=== PATIENT | female | born 1995 | race Caucasian/White ===

== ENCOUNTER 2021-09-07 19:36 | Emergency (ER) | payer OTHER ==
[2021-09-07 20:49] LABS: BASOPHIL 0.6 % (0-2); EOSINOPHIL 1.5 % (0-5); HCT 39.1 % (37.0-47.0); HGB 12.9 g/dl (12.5-16.0); MCH 28.7 pg (25.0-31.0); MCV 86.9 fL (78.0-100.0); MONOCYTE 9.1 % (0-12); MPV 9.4 fL (6.0-9.5); NEUTROPHIL 57.2 % (41-80); NRBC 0; PLT 394 K/uL (150-400); RDW 12.6 % (11.5-14.0); WBC 12.3 K/uL (4.0-10.5)
[2021-09-07 20:53] LABS: BILIRUBIN NEGATIVE (NEGATIVE); BLOOD TRACE-INTACT Ery/uL (NEGATIVE); CLARITY CLEAR (CLEAR); COLOR YELLOW (YELLOW); GLUCOSE (U) NORMAL (NORMAL); LEUKOCYTES 3+ Leu/uL (NEGATIVE); NITRITE NEGATIVE (NEGATIVE); PROTEIN TRACE (LOW) mg/dL (NEGATIVE); UROBILINOGEN 0.2 mg/dL (0.2-1.0)
[2021-09-07 21:06] LABS: ALBUMIN 4.3 g/dL (3.4-5.0); BILIRUBIN - TOTAL 0.4 mg/dL (0.2-1.0); BUN/CREAT RATIO (CALC) 19.3 RATIO; CREATININE 0.88 mg/dL (0.51-0.95); GLOBULIN (CALCULATION) 3.6 g/dL; POTASSIUM 3.7 mmol/L (3.5-5.1); TOTAL PROTEIN 7.9 g/dL (6.4-8.2)
[2021-09-07 21:14] LABS: URINARY WBC 20-50
[2021-09-07 21:15] LABS: BACTERIA TRACE
[2021-09-07] MEDS ORDERED: BACTRIM DS TAB1 EACH PO (23:08)
[2021-09-07] MEDS ORDERED: ONDANSETRON HCL4 MG PO (23:08)
== END 2021-09-07 23:43 | disposition home or self-care (01) ==
LOC: FER 19:36
PROVIDERS: Nurse Practitioner Family
DX: R10.31 Right lower quadrant pain (principal); R11.2 Nausea with vomiting, unspecified; N39.0 Urinary tract infection, site not specified
CPT/HCPCS: 36415; 80053; 81001; 82150; 85025; 87088; J2270; J2405; J7030; Q9967